=== PATIENT | male | born 1985 | race Asian ===

== ENCOUNTER 2025-05-18 12:03 | Emergency (ER) | payer BC, SELFPAY ==
[2025-05-18 12:10] VITALS: BP 138/82
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
== END 2025-05-18 13:02 | disposition home or self-care (01) ==
LOC: EMR 12:03
PROVIDERS: EMERGENCY PHYSICIAN Emergency Medicine; FAMILY PHYSICIAN Family Medicine
DX: S22.32XA Fracture of one rib, left side, initial encounter for closed fracture (principal); X58.XXXA Exposure to other specified factors, initial encounter
CPT/HCPCS: 99283; 71101